=== PATIENT | female | born 1990 | race African-American/Black ===

== ENCOUNTER 2016-12-01 18:28 | Emergency (ER) | payer MEDICAID ==
[~2016-12-01] VITALS: Ht 167.6 cm; Wt 51.7 kg
[~2016-12-01 18:28] MED LIST: ALBUPOW26
[2016-12-01 18:45] VITALS: BP 106/74
[2016-12-01] MEDS ORDERED: ALBUTEROL SULF 2.5 MG/0.5ML(0.5%) NEB SOLN NEB ONE (21:00)
[2016-12-01] MEDS ORDERED: IPRATROPIUM BROM 0.5 MG/2.5ML INH SOL NEB ONE (21:00)
[2016-12-01] MEDS ORDERED: methylPREDNISolone SOD SUCC 125 MG/2 ML VL IM ONE (21:00)
== END 2016-12-01 21:46 | disposition home or self-care (01) ==
LOC: ER 18:28
DX: J45.909 Unspecified asthma, uncomplicated (principal)
CPT/HCPCS: 71020; 94640; 96372; 99284; J2930

== ENCOUNTER 2017-03-25 19:49 | Emergency (ER) | payer MEDICAID ==
[~2017-03-25] VITALS: Ht 170.2 cm; Wt 47.6 kg
[2017-03-25 20:35] LABS: Urine Bilirubin Negative (Negative); Urine Blood 2+ /uL (Negative); Urine Color Yellow (Yellow); Urine Glucose Normal (Normal); Urine Ketone 4+ (Negative); Urine Mucus MODERATE (None Seen); Urine Nitrite Negative (Negative); Urine RBC 102 /hpf (0 - 4); Urine Squamous Epithelial Cell MANY /hpf (<5)
[2017-03-25 21:29] LABS: Basophils # (auto) 0 uL; Basophils % (auto) 0.3 % (0.0-2.0); CONDITION Y; Eosinophils # (auto) 0 uL; Eosinophils % (auto) 0.2 % (0.0-7.0); Hematocrit 38.7 % (36.0-46.0); Hemoglobin 12.9 g/dL (12.2-16.2); Lymphocytes # (auto) 0.5 uL; Lymphocytes % (auto) 9.4 % (10.0-50.0); Mean Corpuscular Hemoglobin 29.3 pg (28.0-32.0); Mean Corpuscular Hgb Conc. 33.4 g/dL (32.0-36.0); Mean Corpuscular Volume 87.7 fL (80.0-100.0); Mean Platelet Volume 8.6 fL (7.4-10.4); Monocytes # (auto) 0.8 uL; Monocytes % (auto) 15.5 % (0.0-12.0); Neutrophils # (auto) 3.6 uL; Neutrophils % (auto) 74.6 % (37.0-80.0); Platelet Count (auto) 263 10^3/uL (140-450); Red Cell Distribution Width 14.2 % (11.6-16.0); White Blood Cell 4.9 10^3/uL (4.4-10.8)
[2017-03-25 21:37] LABS: Albumin 3.8 g/dL (3.4-5.0); BUN/Creatinine Ratio 10.1; Calcium 8.3 mg/dL (8.5-10.1); Potassium 3.8 mmol/L (3.5-5.1)
[2017-03-25 21:39] LABS: Bilirubin, Total 0.4 mg/dL (0.2-1.0); Total Protein 8.1 g/dL (6.4-8.2)
[2017-03-25 22:00] VITALS: BP 100/72
[2017-03-25] MEDS ORDERED: ONDANSETRON HCL 4 MG/2 ML VIAL IV ONE (22:15)
[2017-03-25] MEDS ORDERED: SODIUM CHLORIDE 0.9% 500 ML IV ONE (22:15)
[2017-03-25] MEDS ORDERED: cefTRIAXone 1GM/50ML D5W 50 ML IV ONE (22:15)
[2017-03-25] MEDS ORDERED: NALBUPHINE HCL 10 MG/1ml INJECTION IV ONE (23:30)
== END 2017-03-26 00:55 | disposition home or self-care (01) ==
LOC: ER 19:49
DX: N83.202 Unspecified ovarian cyst, left side (principal); J02.9 Acute pharyngitis, unspecified; R19.7 Diarrhea, unspecified; J45.909 Unspecified asthma, uncomplicated
CPT/HCPCS: 36415; 74176; 80053; 81001; 81025; 83690; 85025; 96365; 96375; 99285; J0696; J2300; J2405; J7030

== ENCOUNTER 2017-05-31 15:57 | Emergency (ER) | payer MEDICAID ==
[~2017-05-31] VITALS: Ht 167.6 cm; Wt 47.6 kg
[2017-05-31 16:05] VITALS: BP 169/105
[2017-05-31 16:46] LABS: Urine Blood 2+ /uL (Negative); Urine Color Red (Yellow); Urine Glucose Normal (Normal); Urine Ketone 1+ (Negative); Urine Mucus MANY (None Seen); Urine Nitrite Negative (Negative); Urine RBC 32 /hpf (0 - 4); Urine Squamous Epithelial Cell MOD /hpf (<5)
[2017-05-31 16:56] LABS: Albumin 3.8 g/dL (3.4-5.0); BUN/Creatinine Ratio 16.3; Bilirubin, Total 0.6 mg/dL (0.2-1.0); Calcium 9.3 mg/dL (8.5-10.1); Potassium 3.4 mmol/L (3.5-5.1); Total Protein 9.1 g/dL (6.4-8.2)
[2017-05-31 16:57] LABS: Basophils # (auto) 0.1 uL; Basophils % (auto) 0.3 % (0.0-2.0); Eosinophils # (auto) 0 uL; Eosinophils % (auto) 0.1 % (0.0-7.0); Hematocrit 40.3 % (36.0-46.0); Hemoglobin 13.6 g/dL (12.2-16.2); Lymphocytes # (auto) 0.8 uL; Lymphocytes % (auto) 5.2 % (10.0-50.0); Mean Corpuscular Hgb Conc. 33.8 g/dL (32.0-36.0); Mean Corpuscular Volume 88.8 fL (80.0-100.0); Mean Platelet Volume 8.7 fL (6.9-10.8); Monocytes # (auto) 0.9 uL; Monocytes % (auto) 5.9 % (0.0-12.0); Neutrophils # (auto) 13.9 uL; Neutrophils % (auto) 88.5 % (37.0-80.0); Platelet Count (auto) 282 10^3/uL (140-450); Red Cell Distribution Width 14.1 % (11.8-14.3); White Blood Cell 15.8 10^3/uL (4.4-10.8)
[2017-05-31 17:02] LABS: Urine Bilirubin Negative (Negative)
== END 2017-05-31 20:45 | disposition left against medical advice (07) ==
LOC: ER 16:02
DX: R10.9 Unspecified abdominal pain (principal); R11.2 Nausea with vomiting, unspecified; Z53.21 Procedure and treatment not carried out due to patient leaving prior to being seen by health care provider
CPT/HCPCS: 36415; 80053; 81001; 83690; 84702; 85025

== ENCOUNTER 2017-11-24 00:57 | Emergency (ER) | payer MEDICAID ==
[~2017-11-24] VITALS: Ht 167.6 cm; Wt 49.9 kg
[2017-11-24 01:32] VITALS: BP 114/63
[2017-11-24 02:33] LABS: Urine Bacteria NONE SEEN /hpf (None Seen); Urine Blood 2+ /uL (Negative); Urine Mucus FEW (None Seen); Urine WBC 7 /hpf (0 - 5)
== END 2017-11-24 05:06 | disposition left against medical advice (07) ==
LOC: ER 00:57
DX: R10.9 Unspecified abdominal pain (principal); R11.2 Nausea with vomiting, unspecified; Z53.21 Procedure and treatment not carried out due to patient leaving prior to being seen by health care provider
CPT/HCPCS: 81001; 81025

== ENCOUNTER 2017-12-06 09:11 | Emergency (ER) | payer MEDICAID ==
[~2017-12-06] VITALS: Ht 167.6 cm; Wt 49.9 kg
[2017-12-06 09:28] VITALS: BP 112/46
== END 2017-12-06 11:16 | disposition home or self-care (01) ==
LOC: ER 09:11
DX: H10.022 Other mucopurulent conjunctivitis, left eye (principal); J02.9 Acute pharyngitis, unspecified; J45.909 Unspecified asthma, uncomplicated

== ENCOUNTER 2018-08-19 01:44 | Emergency (ER) | payer MEDICAID ==
[~2018-08-19] VITALS: Ht 172.7 cm; Wt 59.0 kg
[2018-08-19] MEDS ORDERED: IPRATROPIUM BROM 0.5 MG/2.5ML INH SOL NEB ONE (03:00)
[2018-08-19] MEDS ORDERED: ALBUTEROL SULF 2.5 MG/0.5ML(0.5%) NEB SOLN NEB ONE (03:00)
[2018-08-19] MEDS ORDERED: methylPREDNISolone SOD SUCC 125 MG/2 ML VL IV ONE (03:00)
[2018-08-19 03:29] LABS: Basophils # (auto) 0.1 uL; Basophils % (auto) 0.9 % (0.0-2.0); Eosinophils # (auto) 0.2 uL; Eosinophils % (auto) 2.3 % (0.0-7.0); Hematocrit 41.8 % (36.0-46.0); Hemoglobin 13.6 g/dL (12.2-16.2); Lymphocytes # (auto) 1.9 uL; Lymphocytes % (auto) 19.8 % (10.0-50.0); Mean Corpuscular Hemoglobin 29.5 pg (28.0-32.0); Mean Corpuscular Hgb Conc. 32.6 g/dL (32.0-36.0); Mean Corpuscular Volume 90.5 fL (80.0-100.0); Monocytes % (auto) 10.5 % (0.0-12.0); Neutrophils # (auto) 6.5 uL; Neutrophils % (auto) 66.5 % (37.0-80.0); Platelet Count (auto) 275 10^3/uL (140-450); Red Blood Cells 4.62 10^6/uL (4.0-5.20); Red Cell Distribution Width 14.5 % (11.8-14.3); White Blood Cell 9.8 10^3/uL (4.4-10.8)
[2018-08-19 03:46] LABS: Calcium 8.5 mg/dL (8.5-10.1); Potassium 3.5 mmol/L (3.5-5.1)
[2018-08-19 03:49] LABS: BUN/Creatinine Ratio 14.5; Bilirubin, Total 0.3 mg/dL (0.2-1.0)
[2018-08-19] MEDS ORDERED: ONDANSETRON HCL 4 MG/2 ML VIAL ONE (04:17)
[2018-08-19] MEDS ORDERED: ONDANSETRON HCL 4 MG/2 ML VIAL IV ONE (04:30)
[2018-08-19 05:00] VITALS: BP 100/69
== END 2018-08-19 05:00 | disposition home or self-care (01) ==
LOC: EDBD 01:44 → ER 01:47
DX: J45.901 Unspecified asthma with (acute) exacerbation (principal)
CPT/HCPCS: 36415; 71046; 80053; 83605; 85025; 87040; 94640; 94761; 96374; 99284; J2405; J2930; J7611; J7644

== ENCOUNTER 2018-09-07 07:52 | Emergency (ER) | payer MEDICAID ==
[~2018-09-07] VITALS: Ht 167.6 cm; Wt 48.5 kg
[2018-09-07] MEDS ORDERED: ALBUTEROL SULF 2.5 MG/0.5ML(0.5%) NEB SOLN NEB ONE (08:15)
[2018-09-07] MEDS ORDERED: IPRATROPIUM BROM 0.5 MG/2.5ML INH SOL NEB ONE (08:15)
[2018-09-07 08:41] VITALS: BP 121/64
[2018-09-07] MEDS ORDERED: methylPREDNISolone SOD SUCC 125 MG/2 ML VL IM ONE (08:45)
== END 2018-09-07 09:22 | disposition home or self-care (01) ==
LOC: ER 07:52
DX: J45.901 Unspecified asthma with (acute) exacerbation (principal)
CPT/HCPCS: 94640; 96372; 99283; J2930

== ENCOUNTER 2018-09-08 07:04 | Emergency (ER) | payer MEDICAID ==
[~2018-09-08] VITALS: Ht 167.6 cm; Wt 48.5 kg
[2018-09-08 07:35] VITALS: BP 117/75
[2018-09-08] MEDS ORDERED: cefTRIAXone SOD 1,000 MG VL IM ONE (09:00)
[2018-09-08] MEDS ORDERED: methylPREDNISolone SOD SUCC 125 MG/2 ML VL IM ONE (09:00)
[2018-09-08] MEDS ORDERED: ALBUTEROL SULF 2.5 MG/0.5ML(0.5%) NEB SOLN NEB ONE (09:00)
[2018-09-08] MEDS ORDERED: IPRATROPIUM BROM 0.5 MG/2.5ML INH SOL NEB ONE (09:00)
== END 2018-09-08 10:07 | disposition home or self-care (01) ==
LOC: ER 07:04
DX: J45.909 Unspecified asthma, uncomplicated (principal); N39.0 Urinary tract infection, site not specified
CPT/HCPCS: 81002; 81025; 94640; 96372; 99283; J0696; J2930; J7611; J7644

== ENCOUNTER 2019-07-13 08:15 | Emergency (ER) | payer MEDICAID ==
[~2019-07-13] VITALS: Ht 167.6 cm; Wt 50.8 kg
[2019-07-13 08:21] VITALS: BP 109/73
[2019-07-13] MEDS ORDERED: methylPREDNISolone SOD SUCC 125 MG/2 ML VL IM ONE (09:00)
== END 2019-07-13 09:17 | disposition home or self-care (01) ==
LOC: ER 08:15
DX: J45.909 Unspecified asthma, uncomplicated (principal); Z87.440 Personal history of urinary (tract) infections
CPT/HCPCS: 96372; 99283; J2930

== ENCOUNTER 2019-10-10 07:53 | Emergency (ER) | payer MEDICAID ==
[~2019-10-10] VITALS: Ht 167.6 cm; Wt 51.7 kg
[2019-10-10 08:01] VITALS: BP 120/75
== END 2019-10-10 09:23 | disposition home or self-care (01) ==
LOC: ER 07:53
DX: J02.9 Acute pharyngitis, unspecified (principal); J45.909 Unspecified asthma, uncomplicated; Z87.440 Personal history of urinary (tract) infections
CPT/HCPCS: 71046

== ENCOUNTER 2020-10-30 06:46 | Emergency (ER) | payer MEDICAID ==
[~2020-10-30] VITALS: Ht 167.6 cm; Wt 50.8 kg
[2020-10-30] MEDS ORDERED: MORPHINE SULFATE 4 MG/ML SYR/VIAL IV ONE (07:30)
[2020-10-30] MEDS ORDERED: SODIUM CHLORIDE 0.9% 1,000 ML IV ONE (07:30)
[2020-10-30] MEDS ORDERED: PROCHLORPERAZINE EDISYLATE 5 MG/ML 2ML VIAL IV ONE (07:30)
[2020-10-30] MEDS ORDERED: ONDANSETRON HCL 4 MG/2 ML VIAL ONE (07:34)
[2020-10-30 07:38] LABS: Urine Bacteria FEW /hpf (None Seen); Urine Blood 2+ /uL (Negative); Urine Mucus FEW (None Seen); Urine Specific Gravity 1.025 (1.001-1.035); Urine WBC 2 /hpf (0 - 5)
[2020-10-30 07:39] LABS: Basophils # (auto) 0.2 10 ^3/uL (0-0.2); Basophils % (auto) 2.3 % (0.0-2.0); Eosinophils # (auto) 0.1 10 ^3/uL (0-0.8); Eosinophils % (auto) 1.9 % (0.0-7.0); Hematocrit 40.9 % (36.0-46.0); Hemoglobin 13.6 g/dL (12.2-16.2); Lymphocytes # (auto) 1.9 10 ^3/uL (0.4-5.4); Lymphocytes % (auto) 28.8 % (10.0-50.0); Mean Corpuscular Hemoglobin 29.8 pg (28.0-32.0); Mean Corpuscular Hgb Conc. 33.1 g/dL (32.0-36.0); Mean Corpuscular Volume 89.9 fL (80.0-100.0); Monocytes # (auto) 0.5 10 ^3/uL (0-1.3); Monocytes % (auto) 8.1 % (0.0-12.0); Neutrophils # (auto) 3.9 10 ^3/uL (1.6-8.6); Neutrophils % (auto) 58.9 % (37.0-80.0); Nucleated Red Blood Cells % 0.1 %; Platelet Count (auto) 327 10^3/uL (140-450); Red Blood Cells 4.55 10^6/uL (4.0-5.20); Red Cell Distribution Width 14.4 % (11.8-14.3); White Blood Cell 6.7 10^3/uL (4.4-10.8)
[2020-10-30 07:44] VITALS: BP 97/58
[2020-10-30] MEDS ORDERED: ONDANSETRON HCL 4 MG/2 ML VIAL IM ONE (07:45)
[2020-10-30 07:49] LABS: Albumin 3.9 g/dL (3.4-5.0); BUN/Creatinine Ratio 12.2; Calcium 8.4 mg/dL (8.5-10.1); Potassium 3.4 mmol/L (3.5-5.1)
[2020-10-30 07:51] LABS: Alcohol, Urine < 3.0 mg/dL (0-10); Amphetamine Screen, Urine NEGATIVE (NEGATIVE); Barbiturate Scree,Urine NEGATIVE (NEGATIVE); Benzodiazephine Screen, Urine NEGATIVE (NEGATIVE); Cannabinoid Screen, Urine POSITIVE (NEGATIVE); Cocaine Screen, Urine NEGATIVE (NEGATIVE); Opiate Scree,Urine NEGATIVE (NEGATIVE); Phencyclidine Screen, Urine NEGATIVE (NEGATIVE)
[2020-10-30 07:52] LABS: Bilirubin, Total 0.5 mg/dL (0.2-1.0); Total Protein 7.9 g/dL (6.4-8.2)
[2020-10-30] MEDS ORDERED: cefTRIAXone 1GM/50ML D5W 50 ML IV ONE (09:00)
[2020-10-30] MEDS ORDERED: POTASSIUM EFFERVESENT TAB 25 MEQ PO ONE (09:00)
[2020-10-30] MEDS ORDERED: cefTRIAXone SOD 1,000 MG VL ONE (09:09)
[2020-10-30] MEDS ORDERED: cefTRIAXone SOD 1,000 MG VL IM ONE (09:15)
== END 2020-10-30 09:37 | disposition home or self-care (01) ==
LOC: ER 06:46
DX: N39.0 Urinary tract infection, site not specified (principal); E87.6 Hypokalemia; F12.90 Cannabis use, unspecified, uncomplicated; J45.909 Unspecified asthma, uncomplicated
CPT/HCPCS: 36415; 73020; 80053; 80307; 81001; 82150; 83690; 84702; 85025; 96372; 99284; J0696; J2405

== ENCOUNTER 2022-08-27 10:57 | Emergency (ER) | payer MEDICAID ==
[~2022-08-27] VITALS: Ht 167.6 cm; Wt 49.4 kg
[2022-08-27] MEDS ORDERED: DexAMETHasone 4 MG TAB PO ONE (11:15)
[2022-08-27] MEDS ORDERED: ALBUTEROL SULF 2.5 MG/0.5ML(0.5%) NEB SOLN NEB ONE ×2 (11:15→13:15)
[2022-08-27] MEDS ORDERED: IPRATROPIUM BROM 0.5 MG/2.5ML INH SOL NEB ONE ×2 (11:15→13:15)
[2022-08-27 12:18] VITALS: BP 118/80
[2022-08-27] MEDS ORDERED: cefTRIAXone SOD 1,000 MG VL IM ONE (13:15)
[2022-08-27] MEDS ORDERED: methylPREDNISolone SOD SUCC 125 MG/2 ML VL IM ONE (13:15)
[2022-08-27] MEDS ORDERED: LIDOCAINE 1% HCL (LOCAL ANESTH.) INJ 20ML MDV ONE (13:18)
[2022-08-27] MEDS ORDERED: ALBUTEROL MEDNEB 2.5 mg/3ml NEB ONE (13:23)
[2022-08-27] MEDS ORDERED: METH4PAK PO (14:01)
== END 2022-08-27 14:05 | disposition home or self-care (01) ==
LOC: ER 10:57
DX: J45.901 Unspecified asthma with (acute) exacerbation (principal); J03.90 Acute tonsillitis, unspecified; F41.9 Anxiety disorder, unspecified; J45.909 Unspecified asthma, uncomplicated
CPT/HCPCS: 94640; 96372; 99284; J0696; J2001; J2930; J7644

== ENCOUNTER 2023-03-07 11:22 | Emergency (ER) | payer MEDICAID ==
[~2023-03-07 11:22] MED LIST changes: +METH4PAK PO
[2023-03-07 11:30] VITALS: BP 108/69; PULSE 111; RESP 18; TEMP 98.4; O2SAT 98
[2023-03-07] MEDS ORDERED: HYDR-4902 PO (14:07)
[2023-03-07] MEDS ORDERED: KETOROLAC TROMETH 60MG/2ML VIAL IM ONE (14:15)
[2023-03-07] MEDS ORDERED: HYDROcodone-ACET 5/325MG TAB PO ONE (14:15)
== END 2023-03-07 15:27 | disposition home or self-care (01) ==
LOC: ER 11:22
DX: S83.92XA Sprain of unspecified site of left knee, initial encounter (principal); M25.462 Effusion, left knee; J45.909 Unspecified asthma, uncomplicated; Z79.899 Other long term (current) drug therapy; W18.39XA Other fall on same level, initial encounter; Y93.89 Activity, other specified; Y92.89 Other specified places as the place of occurrence of the external cause; Y99.8 Other external cause status
CPT/HCPCS: 73562; 96372; 99283; J1885

== ENCOUNTER 2023-06-18 07:57 | Emergency (ER) | payer MEDICAID ==
[~2023-06-18] VITALS: Ht 167.6 cm; Wt 46.2 kg
[~2023-06-18 07:57] MED LIST changes: +HYDR-4902 PO
[2023-06-18 08:52] VITALS: BP 116/72; PULSE 113; TEMP 97.6
[2023-06-18] MEDS ORDERED: methylPREDNISolone SOD SUCC 40 MG/ML VL IM ONE (09:00)
[2023-06-18] MEDS ORDERED: IPRATROPIUM BROM 0.5 MG/2.5ML INH SOL NEB ONE (09:00)
[2023-06-18] MEDS ORDERED: ALBUTEROL MEDNEB 2.5 mg/3ml NEB NEB ONE (09:00)
[2023-06-18] MEDS ORDERED: ALBUTEROL MEDNEB 2.5 mg/3ml NEB ONE (09:08)
[2023-06-18 09:11] VITALS: RESP 19; O2SAT 100
[2023-06-18] MEDS ORDERED: METH4PAK PO (09:39)
[2023-06-18] MEDS ORDERED: IPRAAER6 IN (09:39)
== END 2023-06-18 09:43 | disposition home or self-care (01) ==
LOC: ER 07:57
DX: J45.901 Unspecified asthma with (acute) exacerbation (principal); J20.9 Acute bronchitis, unspecified; F41.9 Anxiety disorder, unspecified; F15.90 Other stimulant use, unspecified, uncomplicated
CPT/HCPCS: 71045; 94640; 96372; 99283; J2920; J7644

== ENCOUNTER 2023-08-27 06:31 | Inpatient (IN) | payer MEDICAID ==
[~2023-08-27] VITALS: Ht 167.6 cm; Wt 46.3 kg
[~2023-08-27 06:31] MED LIST changes: +IPRAAER6 IN
[2023-08-27 07:15] LABS: Urine Epithelial Cast None Seen /hpf (<5)
[2023-08-27] MEDS ORDERED: ONDANSETRON HCL 4 MG/2 ML VIAL IV ONE (07:15)
[2023-08-27] MEDS ORDERED: SODIUM CHLORIDE 0.9% 1,000 ML IV ONE (07:15)
[2023-08-27 07:26] LABS: Basophils # (auto) 0.1 10 ^3/uL (0-0.2); Basophils % (auto) 0.7 % (0.0-2.0); Eosinophils # (auto) 0 10 ^3/uL (0-0.8); Eosinophils % (auto) 0.2 % (0.0-7.0); Hematocrit 38.7 % (36.0-46.0); Hemoglobin 12.7 g/dL (12.2-16.2); Lymphocytes # (auto) 1.8 10 ^3/uL (0.4-5.4); Lymphocytes % (auto) 24.9 % (10.0-50.0); Mean Corpuscular Hgb Conc. 32.8 g/dL (32.0-36.0); Mean Corpuscular Volume 88.4 fL (80.0-100.0); Monocytes # (auto) 0.6 10 ^3/uL (0-1.3); Monocytes % (auto) 8.2 % (0.0-12.0); Neutrophils # (auto) 4.7 10 ^3/uL (1.6-8.6); Red Blood Cells 4.38 10^6/uL (4.0-5.20); Red Cell Distribution Width 14.4 % (11.8-14.3); White Blood Cell 7.2 10^3/uL (4.4-10.8)
[2023-08-27] MEDS ORDERED: PANTOPRAZOLE 40mg/50ML NS AE 50 ML IV ONE (07:30)
[2023-08-27] MEDS ORDERED: PANTOPRAZOLE 80 MG in SODIUM CHL 0.9% 100 ML IV ONE (07:30)
[2023-08-27 07:46] LABS: Urine Bacteria NONE SEEN /hpf (None Seen); Urine Blood 3+ /uL (Negative); Urine Clarity HAZY (Clear); Urine Color Yellow (Yellow); Urine Mucus FEW (None Seen); Urine Protein, UAD 2+ (Negative); Urine Specific Gravity 1.032 (1.001-1.035); Urine WBC 12 /hpf (0 - 5)
[2023-08-27 08:13] VITALS: PULSE 78; RESP 16; O2SAT 99
[2023-08-27 08:21] LABS: Alanine Aminotransferase 22 U/L (7-40); Albumin 4.7 g/dL (3.2-4.8); Alkaline Phosphatase 73 U/L (46-116); Anion Gap 13 (5-15); Aspartate Aminotransferase 47 U/L (13-40); BUN/Creatinine Ratio 11.8 (10.0-20.0); Blood Urea Nitrogen 9 mg/dL (9-23); Calcium 9.5 mg/dL (8.5-10.1); Carbon Dioxide 21 mmol/L (20-30); Chloride 106 mmol/L (98-107); Glucose 84 mg/dL (74-106); Potassium 3.6 mmol/L (3.5-5.1); Sodium 140 mmol/L (136-145)
[2023-08-27 08:22] LABS: Bilirubin, Total 0.7 mg/dL (0.2-1.0); Total Protein 7.7 g/dL (5.7-8.2)
[2023-08-27 09:04] LABS: Lipase 31 U/L (12-53)
[2023-08-27] MEDS ORDERED: ONDANSETRON HCL 4 MG/2 ML VIAL IV PRN (09:30)
[2023-08-27] MEDS: PANTOPRAZOLE 40mg/50ML NS AE 50 ML IV SCH ×3 (09:30→21:07)
[2023-08-27] MEDS ORDERED: DOCUSATE SOD 100 MG CAP PO PRN (09:30)
[2023-08-27] MEDS: SODIUM CHLORIDE 0.9% 1,000 ML IV SCH ×2 (09:47→18:23)
[2023-08-27 09:54] LABS: INR 1.08 (0.9-1.15); Prothrombin Time 11.3 sec (9.3-11.8)
[2023-08-27 10:10] LABS: Amphetamine Screen, Urine Neg (NEGATIVE); Barbiturate Scree,Urine Neg (NEGATIVE); Benzodiazephine Screen, Urine Neg (NEGATIVE); Cannabinoid Screen, Urine Pos (NEGATIVE); Cocaine Screen, Urine Neg (NEGATIVE); Opiate Scree,Urine Neg (NEGATIVE); Phencyclidine Screen, Urine Neg (NEGATIVE)
[2023-08-27 10:18] LABS: Hematocrit 37.7 % (36.0-46.0); Hemoglobin 11.9 g/dL (12.2-16.2)
[2023-08-27 22:03] LABS: Hematocrit 38.4 % (36.0-46.0); Hemoglobin 12.1 g/dL (12.2-16.2)
[2023-08-28] VITALS (7 sets, daily range): BP systolic 93–98; BP diastolic 47–57; PULSE 61–77; RESP 16–18; TEMP 98–98.5; O2SAT 97–100
[2023-08-28] MEDS ORDERED: PANTOPRAZOLE 40 MG/10 ML VIAL INJ IV ONE (04:27)
[2023-08-28] MEDS: PANTOPRAZOLE 40mg/50ML NS AE 50 ML IV SCH ×5 (04:48→20:34)
[2023-08-28] MEDS: SODIUM CHLORIDE 0.9% 1,000 ML IV SCH ×3 (04:48→18:50)
[2023-08-28 04:50] LABS: Basophils # (auto) 0 10 ^3/uL (0-0.2); Basophils % (auto) 0.4 % (0.0-2.0); Eosinophils # (auto) 0 10 ^3/uL (0-0.8); Eosinophils % (auto) 0.5 % (0.0-7.0); Hematocrit 35.3 % (36.0-46.0); Hemoglobin 11.4 g/dL (12.2-16.2); Lymphocytes # (auto) 2.5 10 ^3/uL (0.4-5.4); Lymphocytes % (auto) 32.1 % (10.0-50.0); Mean Corpuscular Hemoglobin 28.6 pg (28.0-32.0); Mean Corpuscular Hgb Conc. 32.4 g/dL (32.0-36.0); Mean Corpuscular Volume 88.5 fL (80.0-100.0); Monocytes # (auto) 0.9 10 ^3/uL (0-1.3); Monocytes % (auto) 12.1 % (0.0-12.0); Neutrophils # (auto) 4.3 10 ^3/uL (1.6-8.6); Neutrophils % (auto) 54.9 % (37.0-80.0); Red Blood Cells 3.99 10^6/uL (4.0-5.20); Red Cell Distribution Width 14.4 % (11.8-14.3); White Blood Cell 7.8 10^3/uL (4.4-10.8)
[2023-08-28 05:10] LABS: Alanine Aminotransferase 16 U/L (7-40); Alkaline Phosphatase 61 U/L (46-116); Calcium 8.1 mg/dL (8.7-10.4); Carbon Dioxide 19 mmol/L (20-30); Chloride 112 mmol/L (98-107)
[2023-08-28 05:11] LABS: Albumin 3.7 g/dL (3.2-4.8); Anion Gap 9 (5-15); Aspartate Aminotransferase 26 U/L (13-40); BUN/Creatinine Ratio 7.6 (10.0-20.0); Bilirubin, Total 0.8 mg/dL (0.2-1.0); Blood Urea Nitrogen 6 mg/dL (9-23); Glucose 65 mg/dL (74-106); Potassium 3.8 mmol/L (3.5-5.1); Sodium 140 mmol/L (136-145); Total Protein 6.1 g/dL (5.7-8.2)
[2023-08-28] MEDS ORDERED: PHENYLEPHRINE INJ 10 MG/ML 10ML VIAL IV ONE (09:25)
[2023-08-28 10:06] LABS: Hematocrit 34.6 % (36.0-46.0); Hemoglobin 11.3 g/dL (12.2-16.2)
[2023-08-28] MEDS ORDERED: LIDOCAINE VISCOUS 2% 15ML UD ONE (14:27)
[2023-08-28] MEDS ORDERED: fentaNYL CITRATE 100 MCG/2 ML VL ONE (14:47)
[2023-08-28] MEDS ORDERED: MIDAZOLAM HCL 2MG/2ML 2ml VIAL (1mg/ml) ONE (14:47)
[2023-08-28] MEDS ORDERED: PROPOFOL 10 MG/ML 20 ML IV ONE (15:01)
[2023-08-28] MEDS ORDERED: DexAMETHasone SOD PHOS 10MG/1ML VIAL INJ ONE (15:01)
[2023-08-28] MEDS ORDERED: MIDAZOLAM HCL 2MG/2ML 2ml VIAL (1mg/ml) IV PRN (15:30)
[2023-08-28] MEDS ORDERED: KETOROLAC TROMETH 30 MG/ML 1ML VIAL IV ONE (15:30)
[2023-08-28] MEDS ORDERED: MORPHINE SULFATE 4 MG/ML SYR/VIAL IV PRN (15:30)
[2023-08-28] MEDS ORDERED: LABETALOL HCL 5 MG/ML 4ML SYRINGE IV PRN (15:30)
[2023-08-28] MEDS ORDERED: fentaNYL CITRATE 100 MCG/2 ML VL IV PRN (15:30)
[2023-08-28] MEDS ORDERED: ePHEDrine SULFATE 50 MG/ML AMP IV PRN (15:30)
[2023-08-28] MEDS ORDERED: ONDANSETRON HCL 4 MG/2 ML VIAL IV PRN (15:30)
[2023-08-28 22:11] LABS: Hematocrit 34.5 % (36.0-46.0)
[2023-08-28] MEDS: MORPHINE SULFATE INJ 2 MG/ml SYRG IV PRN (22:32)
[2023-08-29] VITALS (7 sets, daily range): BP systolic 95–100; BP diastolic 40–66; PULSE 61–78; RESP 17–20; TEMP 98–98.9; O2SAT 100
[2023-08-29] MEDS: PANTOPRAZOLE 40mg/50ML NS AE 50 ML IV SCH ×5 (01:38→23:47)
[2023-08-29] MEDS: SODIUM CHLORIDE 0.9% 1,000 ML IV SCH ×3 (03:10→23:51)
[2023-08-29] MEDS: MORPHINE SULFATE INJ 2 MG/ml SYRG IV PRN ×3 (10:19→23:50)
[2023-08-30] MEDS: PANTOPRAZOLE 40mg/50ML NS AE 50 ML IV SCH ×2 (02:30→07:30)
[2023-08-30] MEDS: SODIUM CHLORIDE 0.9% 1,000 ML IV SCH (04:10)
[2023-08-30 05:21] VITALS: BP 98/50; PULSE 81; RESP 18; TEMP 98.9; O2SAT 98
[2023-08-30 06:36] LABS: Anion Gap 6 (5-15); Carbon Dioxide 25 mmol/L (20-30); Chloride 110 mmol/L (98-107); Potassium 3.3 mmol/L (3.5-5.1); Sodium 141 mmol/L (136-145)
[2023-08-30 06:37] LABS: Calcium 8.4 mg/dL (8.5-10.1)
[2023-08-30 06:39] LABS: Basophils # (auto) 0.1 10 ^3/uL (0-0.2); Eosinophils # (auto) 0.1 10 ^3/uL (0-0.8); Lymphocytes # (auto) 2.2 10 ^3/uL (0.4-5.4); Lymphocytes % (auto) 30.9 % (10.0-50.0); Mean Corpuscular Hemoglobin 28.2 pg (28.0-32.0); Mean Corpuscular Hgb Conc. 32.3 g/dL (32.0-36.0); Mean Corpuscular Volume 87.4 fL (80.0-100.0); Monocytes # (auto) 0.9 10 ^3/uL (0-1.3); Monocytes % (auto) 13.2 % (0.0-12.0); Neutrophils # (auto) 3.8 10 ^3/uL (1.6-8.6); Neutrophils % (auto) 53.9 % (37.0-80.0); Nucleated Red Blood Cells % 0.1 %; Red Blood Cells 3.89 10^6/uL (4.0-5.20); Red Cell Distribution Width 14.3 % (11.8-14.3); White Blood Cell 7.1 10^3/uL (4.4-10.8)
[2023-08-30 06:42] LABS: Glucose 78 mg/dL (74-106)
[2023-08-30 06:45] LABS: BUN/Creatinine Ratio 6.3 (10.0-20.0); Blood Urea Nitrogen < 5 mg/dL (9-23)
[2023-08-30 08:00] VITALS: PULSE 60; RESP 17; O2SAT 100
[2023-08-30 09:00] VITALS: BP 99/39; PULSE 60; RESP 19; TEMP 98.7; O2SAT 99
[2023-08-30 13:00] VITALS: BP 108/63; PULSE 67; RESP 19; TEMP 98.6; O2SAT 100
[2023-08-30] MEDS ORDERED: CEFTRIAXONE SODIUM 2 GM in D5W 5% 100 ML IV ONE (13:30)
[2023-08-30] MEDS ORDERED: PANT40TA2 PO (13:30)
[2023-08-30] MEDS ORDERED: CEPH250C PO (13:30)
[2023-08-30] MEDS: MORPHINE SULFATE INJ 2 MG/ml SYRG IV PRN (13:40)
[2023-08-30 16:49] VITALS: BP 108/63; PULSE 67; RESP 19; TEMP 98.6
[2023-08-30 16:55] VITALS: BP 99/61; PULSE 82; RESP 16; TEMP 98.9; O2SAT 97
== END 2023-08-30 17:41 | disposition home or self-care (01) | DRG 241 ==
LOC: ER 06:31 → OVERFLOW 09:20 → EAST 08-28 05:51
PROVIDERS: ADMIT Nurse Practitioner Family; ATTEND Internal Medicine
PROC: 0DB68ZX Excision of Stomach, Via Natural or Artificial Opening Endoscopic, Diagnostic (ICD-10-PCS; principal; 2023-08-28 14:51)
DX: K29.01 Acute gastritis with bleeding (principal); E86.0 Dehydration; F15.90 Other stimulant use, unspecified, uncomplicated; F41.9 Anxiety disorder, unspecified; J45.909 Unspecified asthma, uncomplicated; N30.00 Acute cystitis without hematuria
CPT/HCPCS: 36415; 71045; 74176; 80048; 80053; 80307; 81001; 82962; 83690; 84702; 85014; 85018; 85025; 85610; 86850; 86900; 86901; 96365; 96367; 96375; C9113; G0378; J0696; J1100; J2250; J2405; J2704; J7060

== ENCOUNTER 2024-06-06 11:30 | Emergency (ER) | payer MEDICAID ==
[~2024-06-06] VITALS: Ht 167.6 cm; Wt 47.9 kg
[~2024-06-06 11:30] MED LIST changes: +CEPH250C PO; -METH4PAK PO; +PANT40TA2 PO
[2024-06-06 12:00] VITALS: BP 110/64; PULSE 82; RESP 18; O2SAT 100
[2024-06-06 12:33] LABS: Urine Bacteria None Seen /hpf (None Seen)
[2024-06-06 13:03] LABS: Urine Blood Negative /uL (Negative); Urine Clarity Clear (Clear); Urine Color Yellow (Yellow); Urine Mucus FEW (None Seen); Urine Protein, UAD TRACE (Negative); Urine Specific Gravity 1.024 (1.001-1.035); Urine Urobilinogen 3 mg/dL (Negative); Urine WBC 5 /hpf (0 - 5)
[2024-06-06 13:06] LABS: Basophils # (auto) 0.1 10 ^3/uL (0-0.2); Basophils % (auto) 0.8 % (0.0-2.0); Eosinophils # (auto) 0.1 10 ^3/uL (0-0.8); Eosinophils % (auto) 0.8 % (0.0-7.0); Hematocrit 40.3 % (36.0-46.0); Hemoglobin 13.3 g/dL (12.2-16.2); Lymphocytes # (auto) 1.6 10 ^3/uL (0.4-5.4); Lymphocytes % (auto) 20.6 % (10.0-50.0); Mean Corpuscular Hemoglobin 29.8 pg (28.0-32.0); Mean Corpuscular Hgb Conc. 32.9 g/dL (32.0-36.0); Mean Corpuscular Volume 90.4 fL (80.0-100.0); Monocytes # (auto) 0.6 10 ^3/uL (0-1.3); Monocytes % (auto) 7.5 % (0.0-12.0); Neutrophils # (auto) 5.6 10 ^3/uL (1.6-8.6); Neutrophils % (auto) 70.3 % (37.0-80.0); Platelet Count (auto) 303 10^3/uL (140-450); Red Blood Cells 4.46 10^6/uL (4.0-5.20); Red Cell Distribution Width 14.5 % (11.8-14.3)
[2024-06-06 13:29] LABS: Alanine Aminotransferase 11 U/L (7-40); Albumin 4.8 g/dL (3.2-4.8); Alkaline Phosphatase 65 U/L (46-116); Anion Gap 5 (5-15); Aspartate Aminotransferase 16 U/L (13-40); BUN/Creatinine Ratio 11.1 (10.0-20.0); Bilirubin, Total 0.7 mg/dL (0.2-1.0); Blood Urea Nitrogen 9 mg/dL (9-23); Carbon Dioxide 26 mmol/L (20-31); Chloride 108 mmol/L (98-107); Glucose 84 mg/dL (74-106); Lipase 35 U/L (12-53); Potassium 4.3 mmol/L (3.5-5.1); Sodium 139 mmol/L (136-145); Total Protein 7.5 g/dL (5.7-8.2)
== END 2024-06-06 17:55 | disposition left against medical advice (07) ==
LOC: ER 11:30
DX: O26.891 Other specified pregnancy related conditions, first trimester (principal); R10.2 Pelvic and perineal pain; R10.9 Unspecified abdominal pain; F41.9 Anxiety disorder, unspecified; J45.909 Unspecified asthma, uncomplicated; Z79.899 Other long term (current) drug therapy; Z3A.01 Less than 8 weeks gestation of pregnancy
CPT/HCPCS: 36415; 76801; 76817; 80053; 81001; 83690; 84702; 85025

== ENCOUNTER 2024-11-22 08:50 | Observation (INO) | payer MEDICAID ==
[~2024-11-22] VITALS: Ht 167.6 cm; Wt 59.4 kg
[2024-11-22 09:11] VITALS: BP 105/66; PULSE 75; RESP 17; TEMP 99; O2SAT 99
--- NOTE | 2024-11-22 10:02 | ED.PDOC ---
GI ASSESSMENT HPI Comments 34 y/o F, with PMHx of anxiety, asthma, and UTI's presents to the ED for CC of abdominal pain. Patient states, that she has been experiencing RLQ abdominal pain with associated symptoms of nausea and vomiting x1day. Patient relays, that she is currently [id number] and is unsure if symptoms are related. Patien t comments, that pain worsens with cough or turning onto her sides. Patient denies abdominal pain, vaginal cramping, or vaginal bleeding. No other associated symptoms, modifiers, recent injuries or sick contacts present at this time. Chief Complaint: Abdominal Pain Time Seen by MD: 09:56 Primary Care Provider: CHRISTI Giordano Notes: Nurses Notes, Medications, Allergies Allergies: Coded Allergies: NO KNOWN ALLERGIES (Unverified , 09/04/10) Home Meds Active Scripts Cephalexin (KEFLEX CAPSULE) 250 Mg Cp, 500 MG PO TID for 5 Days, #15 CAP Prov:KURTIS ABBASI MD 08/30/23 Pantoprazole Sodium Sesquihydr (Protonix) 40 Mg Tab, 40 MG PO BID for 30 Days, #60 TAB Prov:KURTIS ABBASI MD 08/30/23 Ipratropium-Albuterol (COMBIVENT RESPIMAT) Respimat Aer, 1 VIAL IN BID PRN, #120 AER Prov:JESÚS BUCK 06/18/23 Hydrocodone-Acetaminophen (Hydrocodone Bitartrate/AC 5-325 mg) 1 Tab Tab, 1 TAB PO Q6HR, #6 TAB as needed for pain Prov:LARA BOBO TRANSMISSION SYSTEMS OPERATOR 03/07/23 Reported Medications Albuterol (Albuterol) Pow 09/04/10 Information Source: Patient Mode of Arrival: Ambulatory Timing: Days Duration: Since onset Prehospital treatment: None Quality: None Vomitus: Watery Stool: Normal Severity: Moderate Recent: None Recent Hx of: None Pain Location: RLQ Modifying Factors: Nothing Associated sign and symptoms: Nausea, Vomiting Past Medical History PAST MEDICAL HISTORY: Anxiety, Asthma, UTI'S Surgical History: Denies all surgeries CHIEF REVENUE OFFICER History: No Pertinent CHIEF REVENUE OFFICER History Family History Family History: No family hx of Cancer, No family hx of Heart cesar, No family hx ofKidney cesar, No family hx of Liver cesar, No family hx of Lung cesar, No family hx of Stroke, Family hx of DM, Family hx of HTN Social History Smoker: Non-Smoker Alcohol: Occasionally Drugs: Denies Drug Use, Marijuana Lives In: Home Constitutional: denies: chills, diaphoresis, fatigue, fever, malaise, sweats, weakness, others EENTM: denies: blurred vision, double vision, ear bleeding, ear discharge, ear drainage, ear pain, ear ringing, eye pain, eye redness, hearing loss, mouth p ain, mouth swelling, nasal discharge, nose bleeding, nose congestion, nose pain, photophobia, tearing, throat pain, throat swelling, voice changes, others Respiratory: denies: cough, hemoptysis, orthopnea, SOB at rest, shortness of br eath, SOB with excertion, stridor, wheezing, others Cardiovascular: denies: chest pain, dizzy spells, diaphoresis, Dyspnea on exertion, edema, irregular heart beat, left arm pain, lightheadedness, palpitations, PND, syncope, others Gastrointestinal: reports: abdominal pain, nausea, vomiting; denies: abdomen distended, blood streaked bowels, constipated, diarrhea, dysphagia, difficulty swallowing, hematemesis, melena, poor appetite, poor fluid intake, rectal bleeding, rectal pain, others Genitourinary: denies: abnormal vagina bleeding, burning, dyspareunia, dysuria, flank pain, frequency, hematuria, incontinence, pain, , vagina discharge, urgency, others Neurological: denies: dizziness, fainting, headache, left sided numbness, left sided weakness, numbness, paresthesia, pre-existing deficit, right sided numbness, right sided weakness, seizure, speech problems, tingling, tremors, weakness, others Musculoskeletal: denies: back pain, gout, joint pain, joint swelling, muscle pain, muscle stiffness, neck pain, others Integumetry: denies: bruises, change in color, change in hair/nails, dryness, laceration, lesions, lumps, rash, wounds, others Allergic/Immunocompromised: denies: Difficulty Healing, Frequent Infections, Hives, Itching, others Hematologic/Lymphatic: denies: anemia, blood clots, easy bleeding, easy bruising, swollen glands, others Endocrine: denies: excessive hunger, excessive sweating, excessive thirst, excessive urination, flushing, intolerance to cold, intolerance to heat, unexplained weight gain, unexplained weight loss, others Psychiatric: denies: anxiety, bipolar disorder, depression, hopeless, panic disorder, schizophrenia, sleepless, suicidal, others All Other Systems: Reviewed and Negative Physical Exam General Appearance: Moderate Distress HEENT: Normal ENT Inspection, Pharynx Normal, TMs Normal Neck: Full Range of Motion, Non-Tender, Normal, Normal Inspection Respiratory: Chest Non-Tender, Lungs Clear, No Accessory Muscle Use, No Respiratory Distress, Normal Breath Sounds Cardiovascular: No Edema, No JVD, No Murmur, No Gallop, Normal Peripheral Pulses, Regular Rate/Rhythm Breast Exam: Deferred Gastrointestinal: No Organomegaly, Non Tender, No Pulsatile Mass, Normal Bowel Sounds, Soft Genitalia: Deferred Pelvic: Deferred Rectal: Deferred Extremities: No calf tenderness, Normal capillary refill, Normal inspection, Normal range of motion, Non-tender, No pedal edema Musculoskeletal : Apperance: Normal Neurologic: Alert, site safety representative II-XII nml as Tested, No Motor Deficits, Normal Affect, Normal Mood, No Sensory Deficits Cerebellar Function: Normal Reflexes: Normal Skin: Dry, Normal Color, Warm Peripheral Pulses: 3+ Radial (R), 3+ Radial (L) Lymphatic: No Adenopathy Was a procedure done? Was a procedure done?: No GI differential Dx Differential Diagnosis: Constipation, Diverticular disease, Esophagitis, Gastritis/PUD, Gastroenteritis, Electrolyte Imbalance, Food Poisoning, Bacterial, Viral X-Ray, Labs, Meds, VS Vital Signs Date Time Temp Pulse Resp B/P (MAP) Pulse Ox O2 Delivery O2 Flow Rate FiO2 11/22/24 09:11 99.0 75 17 105/66 (79) 99 99.0 Lab Test 11/22/24 09:50 Range/Units White Blood Count 10.7 4.4-10.8 10^3/uL Red Blood Count 3.59 L 4.0-5.20 10^6/uL Hemoglobin 10.7 L 12.2-16.2 g/dL Hematocrit 32.9 L 36.0-46.0 % Mean Corpuscular Volume 91.5 80.0-100.0 fL Mean Corpuscular Hemoglobin 29.8 28.0-32.0 pg Mean Corpuscular Hemoglobin Concent 32.6 32.0-36.0 g/dL Red Cell Distribution Width 13.9 11.8-14.3 % Platelet Count 277 140-450 10^3/uL Mean Platelet Volume 7.5 6.9-10.8 fL Neutrophils (%) (Auto) 77.1 37.0-80.0 % Lymphocytes (%) (Auto) 14.0 10.0-50.0 % Monocytes (%) (Auto) 7.6 0.0-12.0 % Eosinophils (%) (Auto) 0.7 0.0-7.0 % Basophils (%) (Auto) 0.6 0.0-2.0 % Neutrophils # (Auto) 8.3 1.6-8.6 10 ^3/uL Lymphocytes # (Auto) 1.5 0.4-5.4 10 ^3/uL Monocytes # (Auto) 0.8 0-1.3 10 ^3/uL Eosinophils # (Auto) 0.1 0-0.8 10 ^3/uL Basophils # (Auto) 0.1 0-0.2 10 ^3/uL Nucleated Red Blood Cells 0.1 % Sodium Level 139 136-145 mmol/L Potassium Level 4.0 3.5-5.1 mmol/L Chloride Level 107 98-107 mmol/L Carbon Dioxide Level 23 20-31 mmol/L Anion Gap 9 5-15 Blood Urea Nitrogen 6 L 9-23 mg/dL Creatinine 0.51 L 0.550-1.02 mg/dL Glomerular Filtration Rate Calc 127 >90 mL/min BUN/Creatinine Ratio 11.8 10.0-20.0 Serum Glucose 74 74-106 mg/dL Calcium Level 9.3 8.7-10.4 mg/dL Patient alert. Complaining of abdominal discomfort. She is seven months . Vitals stable. Answering questions. Ambulating. WBC within normal limits. She will need to be followed by a labor and delivery. Explained to the patient. Time of 1ST Reevaluation: 10:26 Reevaluation 1ST: Improved Patient Education/Counseling: Diagnosis, Treatment Family Education/Counseling: No Family Present Departure 1 Departure Time of Disposition: 11:00 Impression: Primary Impression: abdominal pain and Disposition: 01 HOME / SELF CARE / HOMELESS Condition: Good Discharged With: Self Critical Care Note Critical Care Time?: No Stability Stability form required: No Heart Score Heart Score: Heart Score Response (Comments) Value History N/A 0 EKG N/A 0 Age N/A 0 Risk Factors N/A 0 Troponin N/A 0 Total 0 I personally scribed for DEBRA MUNGUIA MD ([email or web address]) on 11/22/24 at 10:02. Electronically submitted by Griselda Conway ([email or web address]). DEBRA MUNGUIA MD Nov 22, 2024 10:02
[2024-11-22 10:10] LABS: Basophils # (auto) 0.1 10 ^3/uL (0-0.2); Basophils % (auto) 0.6 % (0.0-2.0); Eosinophils # (auto) 0.1 10 ^3/uL (0-0.8); Eosinophils % (auto) 0.7 % (0.0-7.0); Hematocrit 32.9 % (36.0-46.0); Hemoglobin 10.7 g/dL (12.2-16.2); Lymphocytes # (auto) 1.5 10 ^3/uL (0.4-5.4); Mean Corpuscular Hemoglobin 29.8 pg (28.0-32.0); Mean Corpuscular Hgb Conc. 32.6 g/dL (32.0-36.0); Mean Corpuscular Volume 91.5 fL (80.0-100.0); Monocytes # (auto) 0.8 10 ^3/uL (0-1.3); Monocytes % (auto) 7.6 % (0.0-12.0); Neutrophils # (auto) 8.3 10 ^3/uL (1.6-8.6); Neutrophils % (auto) 77.1 % (37.0-80.0); Nucleated Red Blood Cells % 0.1 %; Platelet Count (auto) 277 10^3/uL (140-450); Red Blood Cells 3.59 10^6/uL (4.0-5.20); Red Cell Distribution Width 13.9 % (11.8-14.3); White Blood Cell 10.7 10^3/uL (4.4-10.8)
[2024-11-22 10:11] LABS: Sodium 139 mmol/L (136-145)
[2024-11-22 10:12] LABS: Anion Gap 9 (5-15); Calcium 9.3 mg/dL (8.7-10.4); Carbon Dioxide 23 mmol/L (20-31)
[2024-11-22 10:14] LABS: Chloride 107 mmol/L (98-107)
[2024-11-22 10:17] LABS: BUN/Creatinine Ratio 11.8 (10.0-20.0)
[2024-11-22 10:18] LABS: Blood Urea Nitrogen 6 mg/dL (9-23); Glucose 74 mg/dL (74-106)
[2024-11-22 11:01] LABS: Fern Testing Negative
[2024-11-22 11:12] LABS: Vaginal Bacteria Moderate; Vaginal Clue Cells Few; Vaginal Epithelial Cells Few; Vaginal Trichomonas Not Present
[2024-11-22] MEDS: TERBUTALINE SULFATE 1 MG/ML 1ML VIAL SC SCH (11:16)
--- NOTE | 2024-11-24 08:12 | DVHDS2 ---
Physician Discharge Progress N Final Diagnosis: vag discharge 28wks Operations or Procedures: Operations or Procedures nst,sono Condition on Discharge: Good Disposition: Home Discharge Instructions: Diet: Regular Activity: See Comment Activity comment: pelvic rest Medications: na Follow Up Care: Specialist: 1d Discharge Statement: "Patient was advised to return to the ER or call 911 if any headaches, dizziness, shortness of breath, chest pain, abdominal pain, bleeding, fevers, or worsening of medical condition. Patient was counseled about treatment plan, medications, possible side effects, patientverbalized understanding. All questions were answered to the best of my ability. This discharge took greater then 30 minutes in planning, reviewing documentation, counseling the patient, and discussing with other team members." Visit Coding OBGYN Date of Service: Nov 22, 2024 Billing Provider: PRASAD MÁRQUEZ DO LAUNDRY ATTENDANT Common Visit Codes: 40040-GEMEVAL INP/OBS CARE (HIGH) LAUNDRY ATTENDANT Procedure Codes: 56394-84- NON-STRESS TEST PRASAD MÁRQUEZ DO Nov 24, 2024 08:12
== END 2024-11-22 12:03 | disposition home or self-care (01) ==
LOC: ER 08:50 → LDRP 09:38 → UNDOADMOB 10:03 → LDRP 10:13 → UNDODISOB 12:03
PROVIDERS: ADMIT Obstetrics & Gynecology; ATTEND Obstetrics & Gynecology
DX: O26.893 Other specified pregnancy related conditions, third trimester (principal); N89.8 Other specified noninflammatory disorders of vagina; O21.2 Late vomiting of pregnancy; R10.31 Right lower quadrant pain; O99.513 Diseases of the respiratory system complicating pregnancy, third trimester; J45.909 Unspecified asthma, uncomplicated; O99.343 Other mental disorders complicating pregnancy, third trimester; F41.9 Anxiety disorder, unspecified; Z3A.28 28 weeks gestation of pregnancy; Z79.899 Other long term (current) drug therapy; Z98.890 Other specified postprocedural states
CPT/HCPCS: 36415; 80048; 81002; 84112; 85025; 87210; 94760; 96372; 99284; G0378; J3105; Q0114

== ENCOUNTER 2025-01-29 13:07 | Observation (INO) | payer MEDICAID ==
[2025-01-29] MEDS ORDERED: PREN-96 PO (14:29)
[2025-01-29 14:47] LABS: Vaginal Bacteria Many; Vaginal Epithelial Cells Many; Vaginal Trichomonas Not Present
[2025-01-29 14:48] LABS: Vaginal Clue Cells Moderate
[2025-01-29] MEDS ORDERED: METR-344 PO (15:22)
[2025-01-29] MEDS ORDERED: FLUC150T47 PO (15:22)
--- NOTE | 2025-01-29 15:25 | DVH ---
LIMITED OB ULTRASOUND > 14 WKS: HISTORY: No Records, Leaking Fluid TECHNIQUE: Multiple real-time grayscale images of the gravid uterus with duplex Doppler color flow an d M-mode spectral analysis. TRANSDUCER: TransAbdominal FINDINGS: IUP single live fetus at 37 weeks, 5 days based on composite averages of the BPD, head circumference, abdominal circumference and femur length Estimated weight 3045 grams heart rate 148 beats per minute SLICK 16.2 cm Cervix was not visualized. Cephalic Presentation Grade II posterior Placenta without previa or abruption. IMPRESSION: IUP single live fetus at 37 weeks 5 days AUA corresponding to an EDDIE of 7-10-25
--- NOTE | 2025-01-29 15:26 | DVHDS2 ---
Physician Discharge Progress N Final Diagnosis: BV and vaginal yeast infection Operations or Procedures: Operations or Procedures S: 34yo IUP@37wks presents to OB triage with c/o large gush of fluid this afternoon when standing. +FM, denies UCs/VB/HILL/vision changes/RUQ pain. PNC with Dr. Poole. OB hx: twins at 28 wks, NSVDx1, C/Sx1 O: VSS NST reactive SVE declined SSE by RN: negative pooling and nitrazine Laboratory Tests Test 01/29/25 14:01 01/29/25 14:10 Range/Units Placental Bcicg-2-Fihgyctapwtyb Negative Vaginal WBC (Wet Prep) Many Vaginal RBC (Wet Prep) Few Vaginal Epithelial Cells (Wet Prep) Many Vaginal Bacteria (Wet Prep) Many Vaginal Trichomonas (Wet Prep) Not present Vaginal Yeast (Wet Prep) Many Vaginal Clue Cells (Wet Prep) Moderate A: 34yo IUP@37wks BV vaginal yeast infection previous C/Sx1 P: D/C home FKC/PreE/labor precautions reviewed Avoid sex for next 7 days Take daily women's probiotic supplement Condition on Discharge: Stable Disposition: Home Discharge Instructions: Diet: Regular Activity: No Restrictions, As Tolerated Follow Up/Referral: f/u with primary OB as scheduled Medications: see med list Follow Up Care: Specialist: f/u with primary OB as scheduled Discharge Statement: "Patient was advised to return to the ER or call 911 if any headaches, dizziness, shortness of breath, chest pain, abdominal pain, bleeding, fevers, or worsening of medical condition. Patient was counseled about treatment plan, medications, possible side effects, patientverbalized understanding. All questions were answered to the best of my ability. This discharge took greater then 30 minutes in planning, reviewing documentation, counseling the patient, and discussing with other team members." Visit Coding OBGYN Date of Service: Jan 29, 2025 Billing Provider: CLARICE TRAN CNM IMPLEMENTATION DIRECTOR Common Visit Codes: 32034-FQUSLNX OBS CARE (HIGH) IMPLEMENTATION DIRECTOR Procedure Codes: 46478-74- NON-STRESS TEST CLARICE TRAN CNM Jan 29, 2025 15:26
== END 2025-01-29 15:44 | disposition home or self-care (01) ==
LOC: LDRP 13:07
PROVIDERS: ADMIT Obstetrics & Gynecology; ATTEND Obstetrics & Gynecology
DX: O23.593 Infection of other part of genital tract in pregnancy, third trimester (principal); O42.92 Full-term premature rupture of membranes, unspecified as to length of time between rupture and onset of labor; B96.89 Other specified bacterial agents as the cause of diseases classified elsewhere; B37.31 Acute candidiasis of vulva and vagina; Z3A.37 37 weeks gestation of pregnancy; Z98.890 Other specified postprocedural states; Z79.899 Other long term (current) drug therapy
CPT/HCPCS: 59025; 76805; 81002; 84112; 87210; 94760; G0378